=== PATIENT | female | born 1940 | race Caucasian/White ===

== ENCOUNTER 2022-06-26 11:25 | Inpatient (IN) | payer MEDICARE, OTHER ==
[~2022-06-26] VITALS: Ht 162.6 cm; Wt 77.1 kg
[2022-06-26] MEDS ORDERED: METOPROLOL (12:04)
[2022-06-26] MEDS ORDERED: ATORVASTATIN (12:04)
[2022-06-26] MEDS ORDERED: LISINOPRIL (12:04)
[2022-06-26] MEDS ORDERED: HYDRALAZINE (12:04)
--- NOTE | 2022-06-26 12:04 | NUR ---
PT UNABLE TO RECALL DOSAGES FOR MEDS.
[2022-06-26 13:04] LABS: HEMATOCRIT 27.5 % (31.2-41.9); MEAN CORPUSCULAR HEMOGLOBIN 16.7 uug (24.7-32.8); MEAN CORPUSCULAR VOLUME 61.4 fL (75.5-95.3); PLATELET COUNT (AUTO) 692 K/uL (179-408)
[2022-06-26 13:27] LABS: ALANINE AMINOTRANSFERASE 17 U/L (14-59); ALKALINE PHOSPHATASE 100 U/L (50-136); ASPARTATE AMINOTRANSFERASE 17 U/L (15-37); BILIRUBIN,DIRECT 0.4 mg/dL (0.0-0.2); BILIRUBIN,TOTAL 0.8 mg/dL (0.2-1.0); CARBON DIOXIDE 30 mmol/L (21-32); CHLORIDE 104 mmol/L (98-107); CREATININE 0.7 mg/dL (0.6-1.3); GLUCOSE 125 mg/dL (74-106); POTASSIUM 4.2 mmol/L (3.5-5.1); TOTAL PROTEIN, SERUM 7.2 g/dL (6.4-8.2); UREA NITROGEN, BLOOD 18 mg/dL (7-18)
[2022-06-26] MEDS ORDERED: FUROSEMIDE 40 MG/4 ML VIAL IV ONE (14:00)
[2022-06-26] MEDS ORDERED: ASPIRIN 81 MG TAB.CHEW PO ONE (14:00)
[2022-06-26] MEDS ORDERED: ACETAMINOPHEN 325 MG TABLET PO PRN (14:15)
[2022-06-26] MEDS ORDERED: hydrALAZINE HCL 20 MG/1 ML VIAL IV PRN (14:15)
[2022-06-26] MEDS ORDERED: LABETALOL HCL 100 MG/20 ML VIAL IV PRN (14:15)
[2022-06-26] MEDS ORDERED: ALBUTEROL SULFATE 8 GM HFA.AER.AD IH PRN (14:15)
[2022-06-26] MEDS ORDERED: MORPHINE SULFATE 2 MG/1 ML DISP.SYRIN IVP PRN (14:15)
[2022-06-26] MEDS ORDERED: ONDANSETRON 4 MG/2 ML VIAL IV PRN (14:15)
[2022-06-26] MEDS ORDERED: FUROSEMIDE 40 MG/4 ML VIAL ONE (14:16)
[2022-06-26] MEDS ORDERED: ASPIRIN 81 MG TAB.CHEW ONE (14:16)
[2022-06-26] MEDS ORDERED: SWABABLE VALVE TRANSFER SET EA MC ONE (14:28)
[2022-06-26] MEDS ORDERED: IV NORMAL SALINE 250 ML IV ONE (14:28)
[2022-06-26] MEDS ORDERED: IOHEXOL 350 100 ML INFUS..BTL ONE (14:28)
[2022-06-26 15:01] LABS: LYMPHOCYTES % (MANUAL) 3 % (20-40); MONOCYTES % (MANUAL) 4 % (2-10); NEUTROPHILS % (MANUAL) 93 % (42-75)
[2022-06-26] MEDS ORDERED: levoFLOXacin 750 MG/D5W 150 ML PIGGYBACK IV ONE (15:30)
--- NOTE | 2022-06-26 15:30 | NUR ---
Unable to give Levaquin ABX IV to Pt since no IV available now.
--- NOTE | 2022-06-26 15:42 | NUR ---
Pt HL on LT Fa removed, small infiltate noted, ice applied.
--- NOTE | 2022-06-26 15:46 | NUR ---
Pt left Er for Ct scan.
--- NOTE | 2022-06-26 16:02 | NUR ---
Pt back from Ct, resting in bed.
[2022-06-26 16:36] LABS: *BILIRUBIN,URIN NEGATIVE (NEGATIVE); *BLOOD, URINE 2+ (NEGATIVE); *CLARITY,URINE CLEAR (CLEAR); *KETONES,URINE NEGATIVE (NEGATIVE); *UROBILINOGEN,URINE 0.2 E.U./dl (NORMAL); LEUKOCYTE ESTERASE ,URINE TRACE (NEGATIVE); NITRITE, URINE NEGATIVE (NEGATIVE); PH,URINE 6.5 (5.0-8.0); UGLUCOSE NEGATIVE (NEGATIVE)
[2022-06-26 16:47] LABS: BACTERIA,URINE MODERATE /HPF (NONE SEEN); SQUAMOUS EPITHELIAL CELL,UR FEW /HPF (NONE SEEN)
[2022-06-26 16:53] LABS: *COLOR,URINE LIGHT YELLOW (YELLOW)
--- NOTE | 2022-06-26 17:02 | NUR ---
ALINE Midline placed by midline RN.
--- NOTE | 2022-06-26 17:22 | NUR ---
Pt transfered to room 307, TELE via [facility].
[2022-06-26] MEDS ORDERED: ALBUTEROL SULFATE 2.5 MG/3 ML NEBU NEB PRN (17:30)
[2022-06-26 17:53] VITALS: BP 157/74
--- NOTE | 2022-06-26 18:09 | NUR ---
Pt. admitted from ER. Alert and oriented x3. Admit diagnosis is CHF new onset. Pt. has F/C and yellow color urine noted in the bag. Compliance with the care given. Body check done and picture included in pt. chart. Able to ambulate with assist. Call light within reach. No. c/o pain. Will keep monitoring the patient.
[2022-06-26] MEDS: DOCUSATE SODIUM 100 MG CAPSULE PO SCH (18:26)
[2022-06-26 20:00] VITALS: BP 165/85
[2022-06-26] MEDS: FUROSEMIDE 40 MG/4 ML VIAL IV SCH (20:28)
[2022-06-26] MEDS ORDERED: HEPARIN SODIUM,PORCINE 5,000 UNITS/ML VIAL SQ SCH (21:00)
--- NOTE | 2022-06-26 21:24 | NUR ---
Patient in bed awake alert and oriented x3, not in resp distress, denies chest pain. HR up to 130 x 1 hr BP-142/70, reported to Dr. Pantoja.
--- NOTE | 2022-06-26 22:02 | NUR ---
Seen by Dr. Esquivel with new meds and labs orders noted and carried out.
[2022-06-26 23:09] LABS: IRON, SERUM 15 ug/dL (50-175)
[2022-06-26] MEDS: ATORVASTATIN 40 MG TABLET PO SCH (23:10)
[2022-06-26] MEDS: NITROFURANTOIN/NITROFURAN MAC 100 MG CAPSULE PO SCH (23:10)
[2022-06-26 23:13] LABS: FERRITIN 36 ng/mL (8-252)
[2022-06-27] VITALS (10 sets, daily range): BP systolic 117–156; BP diastolic 57–90
[2022-06-27 06:16] LABS: HEMATOCRIT 25.9 % (31.2-41.9); MEAN CORPUSCULAR VOLUME 61.5 fL (75.5-95.3); PLATELET COUNT (AUTO) 589 K/uL (179-408)
--- NOTE | 2022-06-27 06:32 | NUR ---
Critical lab result Hgb 7.2 and troponin 114 reported to Chelsy Flores CONFERENCE RESERVATIONIST with order to transfuse 1 PRBC and lasix 20 mg IV x1 when the blood is transfused. Noted and endorsed to morning shift. Patient is stable, no signs of active bleeding.
[2022-06-27 06:36] LABS: BILIRUBIN,TOTAL 0.8 mg/dL (0.2-1.0); CREATININE 0.7 mg/dL (0.6-1.3); PHOSPHOROUS 3.7 mg/dL (2.5-4.9); POTASSIUM 3.3 mmol/L (3.5-5.1); TOTAL PROTEIN, SERUM 6.3 g/dL (6.4-8.2)
[2022-06-27 06:52] LABS: EOSINOPHILS % (MANUAL) 1 % (0-8); LYMPHOCYTES % (MANUAL) 6 % (20-40); MONOCYTES % (MANUAL) 5 % (2-10); NEUTROPHILS % (MANUAL) 88 % (42-75)
[2022-06-27] MEDS ORDERED: FUROSEMIDE 20 MG/2 ML VIAL IV PRN (07:15)
[2022-06-27] MEDS: FLUTICASONE/VILANTEROL 1 EACH BLST.W.DEV INH SCH (08:58)
[2022-06-27] MEDS: DOCUSATE SODIUM 100 MG CAPSULE PO SCH ×3 (08:59→22:16)
[2022-06-27] MEDS: NITROFURANTOIN/NITROFURAN MAC 100 MG CAPSULE PO SCH ×2 (08:59→22:16)
[2022-06-27] MEDS: ASPIRIN EC 81 MG TABLET.DR PO SCH (08:59)
[2022-06-27] MEDS: FUROSEMIDE 40 MG/4 ML VIAL IV SCH ×2 (09:00→22:15)
[2022-06-27] MEDS ORDERED: ALBUMIN HUMAN 25% 100 ML IV ONE (09:30)
[2022-06-27] MEDS ORDERED: SOD FERRIC GLUC COMPLX/SUCROSE 125 MG in IV NORMAL SALINE 100 ML IV SCH (10:30)
[2022-06-27] MEDS ORDERED: POTASSIUM CHLORIDE 20 MEQ TAB.PRT.SR PO ONE (10:30)
--- NOTE | 2022-06-27 10:46 | NUR ---
Lasix was not given because blood was not administered due to missing consent. Now that we have consent, we are waiting for the blood form the lab
[2022-06-27 11:20] LABS: HEMATOCRIT 27.1 % (31.2-41.9)
[2022-06-27] MEDS ORDERED: SOD FERRIC GLUC COMPLX/SUCROSE 125 MG in IV NORMAL SALINE 100 ML IV ONE (11:30)
--- NOTE | 2022-06-27 12:22 | NUR ---
WOUND CARE CONSULT: PT PRESENTS WITH VERY RED RASH WITH ODOR TO ABDOMINAL/GROIN FOLDS AND PERINEUM, PRESENT ON ADMISSION. RECOMMENDATIONS MADE FOR SKIN CARE AND PROTECTION. DISCUSSED WITH NURSING STAFF. IN AGREEMENT WITH PLAN OF CARE. Addendum: 06/27/22 at 1224 by DAYA COLMENARES RN Amended: Links added.
[2022-06-27] MEDS ORDERED: REMEDY ESSENTIAL ZINC PASTE 113 GM TOP PRN (12:30)
[2022-06-27] MEDS: REMEDY ESSENTIAL ZINC PASTE 113 GM TOP SCH (21:00)
[2022-06-27] MEDS: CLOTRIMAZOLE/BETAMET DIPROP CREAM 15 GM TUBE TOP SCH (21:00)
[2022-06-27] MEDS: ATORVASTATIN 40 MG TABLET PO SCH (22:16)
[2022-06-28] VITALS (7 sets, daily range): BP systolic 135–148; BP diastolic 73–97
[2022-06-28 02:33] LABS: HEMATOCRIT 28.5 % (31.2-41.9)
[2022-06-28 06:54] LABS: HEMATOCRIT 27.3 % (31.2-41.9); MEAN CORPUSCULAR HEMOGLOBIN 18.9 uug (24.7-32.8); MEAN CORPUSCULAR VOLUME 63.4 fL (75.5-95.3); PLATELET COUNT (AUTO) 503 K/uL (179-408)
[2022-06-28 07:26] LABS: CARBON DIOXIDE 34 mmol/L (21-32); CHLORIDE 104 mmol/L (98-107); CREATININE 0.6 mg/dL (0.6-1.3); GLUCOSE 100 mg/dL (74-106); MAGNESIUM 1.5 mg/dL (1.8-2.4); PHOSPHOROUS 2.9 mg/dL (2.5-4.9); POTASSIUM 3.4 mmol/L (3.5-5.1); UREA NITROGEN, BLOOD 13 mg/dL (7-18)
--- NOTE | 2022-06-28 08:01 | NUR ---
1934 Patient received from ongoing nurse at patient bedside. Patient is AAOX3 with some episode of confusion. She is very nice to our staff. Patient denies pain, discomfort; SOB, chill, rash any adverse effect after and during blood transfusion. All of her schedule meds have been administered. No PRN administered. Patient has a Ferrer ; but used the bathroom for BM. She slept for most of the shift with any interruption. We are still waiting for her D/C order. She is now resting in her room. Will continue to monitor patient for safety.
[2022-06-28] MEDS: ASPIRIN EC 81 MG TABLET.DR PO SCH (09:58)
[2022-06-28] MEDS: NITROFURANTOIN/NITROFURAN MAC 100 MG CAPSULE PO SCH ×2 (09:58→21:03)
[2022-06-28] MEDS: FUROSEMIDE 40 MG/4 ML VIAL IV SCH ×2 (09:58→21:03)
[2022-06-28] MEDS: FLUTICASONE/VILANTEROL 1 EACH BLST.W.DEV INH SCH ×2 (09:59→21:12)
[2022-06-28] MEDS: REMEDY ESSENTIAL ZINC PASTE 113 GM TOP SCH ×2 (09:59→21:14)
[2022-06-28] MEDS: CLOTRIMAZOLE/BETAMET DIPROP CREAM 15 GM TUBE TOP SCH ×2 (09:59→21:12)
[2022-06-28] MEDS ORDERED: POTASSIUM CHLORIDE 20 MEQ TAB.PRT.SR PO ONE (11:00)
[2022-06-28] MEDS ORDERED: ATOR20TA PO (11:17)
[2022-06-28] MEDS ORDERED: METO100T14 PO (11:17)
[2022-06-28] MEDS ORDERED: LISI40TA13 PO (11:17)
[2022-06-28] MEDS ORDERED: HYDR-4077 PO (11:17)
[2022-06-28 11:25] LABS: HEMATOCRIT 29.2 % (31.2-41.9)
[2022-06-28] MEDS: MAGNESIUM SULFATE/D5W 100 ML IV SCH ×2 (11:55→13:23)
[2022-06-28] MEDS: SOD FERRIC GLUC COMPLX/SUCROSE 125 MG in IV NORMAL SALINE 100 ML IV SCH (13:52)
[2022-06-28] MEDS: DOCUSATE SODIUM 100 MG CAPSULE PO SCH (17:05)
[2022-06-28 17:53] LABS: BAND % (MANUAL) 0 % (0-10); BASOPHILS % (MANUAL) 0 % (0-2); EOSINOPHILS % (MANUAL) 1 % (0-8); LYMPHOCYTES % (MANUAL) 9 % (20-40); MONOCYTES % (MANUAL) 10 % (2-10); NEUTROPHILS % (MANUAL) 80 % (42-75)
[2022-06-28 19:05] LABS: HEMATOCRIT 28.5 % (31.2-41.9)
--- NOTE | 2022-06-28 19:30 | NUR ---
Received patient alert oriented, no sob no chest pain, tele monitor sinus rhythm, no complain of pain, guallpa cath draining with large amount of urine as expected, on Lasix 40mg, Patient appears weak but able to hold meaningful conversation, tx continue on skin condition rashes on abdominal folds, swelling of lower extremities, kept comfortable.
[2022-06-28] MEDS: ATORVASTATIN 40 MG TABLET PO SCH (21:03)
[2022-06-29 00:04] VITALS: BP 99/69
[2022-06-29 04:20] VITALS: BP 128/75
--- NOTE | 2022-06-29 04:56 | NUR ---
Patient awake alert, no sob no chest pain, v/s stable, tele monitor sinus rhythm, guallpa cath patent, draining with moderate amount of urine as expected, no complain of pain, kept clean dry and comfortable, cont to monitor.
[2022-06-29] MEDS ORDERED: DOCUSATE SODIUM 100 MG CAPSULE PO PRN (05:30)
[2022-06-29] MEDS ORDERED: MAGNESIUM HYDROXIDE 30 ML LIQUID UDC PO PRN (05:30)
[2022-06-29 06:05] LABS: CARBON DIOXIDE 37 mmol/L (21-32); CHLORIDE 102 mmol/L (98-107); CREATININE 0.5 mg/dL (0.6-1.3); GLUCOSE 113 mg/dL (74-106); MAGNESIUM 1.7 mg/dL (1.8-2.4); POTASSIUM 2.9 mmol/L (3.5-5.1); UREA NITROGEN, BLOOD 11 mg/dL (7-18)
[2022-06-29] MEDS: FUROSEMIDE 40 MG/4 ML VIAL IV SCH ×2 (09:26→21:49)
[2022-06-29] MEDS: DOCUSATE SODIUM 100 MG CAPSULE PO SCH ×2 (09:26→17:10)
[2022-06-29] MEDS: NITROFURANTOIN/NITROFURAN MAC 100 MG CAPSULE PO SCH ×2 (09:26→21:48)
[2022-06-29] MEDS: REMEDY ESSENTIAL ZINC PASTE 113 GM TOP SCH ×2 (09:27→21:50)
[2022-06-29] MEDS: CLOTRIMAZOLE/BETAMET DIPROP CREAM 15 GM TUBE TOP SCH ×2 (09:27→21:49)
[2022-06-29] MEDS: ASPIRIN EC 81 MG TABLET.DR PO SCH (09:29)
[2022-06-29] MEDS: POTASSIUM CHLORIDE 20 MEQ TAB.PRT.SR PO SCH ×2 (11:13→17:10)
[2022-06-29] MEDS: METOPROLOL TARTRATE 50 MG TABLET PO SCH ×2 (11:33→21:48)
[2022-06-29] MEDS: MAGNESIUM SULFATE/D5W 100 ML IV SCH ×2 (11:37→12:42)
[2022-06-29 11:56] VITALS: BP 125/81
[2022-06-29] MEDS: SOD FERRIC GLUC COMPLX/SUCROSE 125 MG in IV NORMAL SALINE 100 ML IV SCH (14:00)
[2022-06-29 14:30] VITALS: BP 149/83
--- NOTE | 2022-06-29 14:50 | NUR ---
Discharge was given and completed all documents signed and patient stated that her son will be picking her up [id number] Addendum: 06/29/22 at 1455 by [facility] [id number] RN Discharge was given and completed all documents signed and patient stated that her son will be picking her up at around 1400 pm at time of note 1453 pm, son has not arrive as yet to transport patient home, patient wait quietly with no c/o or discomfort noted at this time.
[2022-06-29 20:16] VITALS: BP 128/71
[2022-06-29] MEDS ORDERED: METOPROLOL TARTRATE 50 MG TABLET PO SCH (21:00)
[2022-06-29] MEDS ORDERED: Medication Not On Formulary EA (Metoprolol Tartrate (Lopressor) 100 MG) PO SCH (21:00)
[2022-06-29] MEDS ORDERED: ATORVASTATIN 20 MG TABLET PO SCH (21:00)
[2022-06-29] MEDS: ATORVASTATIN 40 MG TABLET PO SCH (21:48)
[2022-06-29] MEDS: hydrALAZINE HCL 50 MG TABLET PO SCH (21:49)
[2022-06-30 00:30] VITALS: BP 117/67
[2022-06-30 04:08] VITALS: BP_SYST 121; BP_DIAS 41; BP_DIAS 74
[2022-06-30 06:43] LABS: HEMATOCRIT 27.4 % (31.2-41.9); MEAN CORPUSCULAR HEMOGLOBIN 18.6 uug (24.7-32.8); MEAN CORPUSCULAR VOLUME 65.4 fL (75.5-95.3); PLATELET COUNT (AUTO) 429 K/uL (179-408)
[2022-06-30 07:05] LABS: CREATININE 0.6 mg/dL (0.6-1.3); PHOSPHOROUS 2.6 mg/dL (2.5-4.9); POTASSIUM 3.9 mmol/L (3.5-5.1)
[2022-06-30] MEDS ORDERED: Medication Not On Formulary EA (Lisinopril 40 MG) PO SCH (09:00)
[2022-06-30] MEDS: NITROFURANTOIN/NITROFURAN MAC 100 MG CAPSULE PO SCH ×2 (09:33→21:27)
[2022-06-30] MEDS: hydrALAZINE HCL 50 MG TABLET PO SCH ×2 (09:34→21:28)
[2022-06-30] MEDS: POTASSIUM CHLORIDE 20 MEQ TAB.PRT.SR PO SCH ×2 (09:34→17:28)
[2022-06-30] MEDS: METOPROLOL TARTRATE 50 MG TABLET PO SCH ×2 (09:35→21:29)
[2022-06-30] MEDS: LISINOPRIL 20 MG TABLET PO SCH (09:35)
[2022-06-30] MEDS: DOCUSATE SODIUM 100 MG CAPSULE PO SCH ×2 (09:36→17:28)
[2022-06-30] MEDS: ASPIRIN EC 81 MG TABLET.DR PO SCH (09:36)
[2022-06-30] MEDS: COLCHICINE 0.6 MG TABLET PO SCH ×2 (09:41→17:28)
[2022-06-30] MEDS: REMEDY ESSENTIAL ZINC PASTE 113 GM TOP SCH ×2 (09:42→21:30)
[2022-06-30] MEDS: CLOTRIMAZOLE/BETAMET DIPROP CREAM 15 GM TUBE TOP SCH ×2 (09:43→21:29)
[2022-06-30] MEDS: FLUTICASONE/VILANTEROL 1 EACH BLST.W.DEV INH SCH (09:43)
[2022-06-30 10:21] LABS: LYMPHOCYTES % (MANUAL) 8 % (20-40); MONOCYTES % (MANUAL) 9 % (2-10); NEUTROPHILS % (MANUAL) 83 % (42-75)
[2022-06-30 11:54] VITALS: BP 115/69
[2022-06-30 16:28] VITALS: BP 137/74
[2022-06-30 20:00] VITALS: BP 138/78
[2022-06-30] MEDS: ATORVASTATIN 40 MG TABLET PO SCH (21:28)
[2022-07-01 04:00] VITALS: BP 146/76
--- NOTE | 2022-07-01 05:27 | NUR ---
Patient awake,alert,and oriented x3. No acute distress noted. Denies pain. Mild shortness of breath noted. Head of bed elevated 35%. O2 on at 3l per n c. Ferrer intact with clear frank urine noted. Up to bathroom with walker and assistance. Patient had small bm. Will continue to monitor.
[2022-07-01 06:54] LABS: HEMATOCRIT 28.5 % (31.2-41.9); MEAN CORPUSCULAR HEMOGLOBIN 18.9 uug (24.7-32.8); MEAN CORPUSCULAR VOLUME 66.6 fL (75.5-95.3); PLATELET COUNT (AUTO) 424 K/uL (179-408)
[2022-07-01 07:29] LABS: CREATININE 0.6 mg/dL (0.6-1.3); MAGNESIUM 1.9 mg/dL (1.8-2.4); PHOSPHOROUS 2.8 mg/dL (2.5-4.9); POTASSIUM 4.4 mmol/L (3.5-5.1)
[2022-07-01 08:00] VITALS: BP 134/72
[2022-07-01] MEDS: CLOTRIMAZOLE/BETAMET DIPROP CREAM 15 GM TUBE TOP SCH (09:00)
[2022-07-01] MEDS: REMEDY ESSENTIAL ZINC PASTE 113 GM TOP SCH (09:00)
[2022-07-01] MEDS: FLUTICASONE/VILANTEROL 1 EACH BLST.W.DEV INH SCH (09:00)
[2022-07-01] MEDS: METOPROLOL TARTRATE 50 MG TABLET PO SCH (10:35)
[2022-07-01] MEDS: DOCUSATE SODIUM 100 MG CAPSULE PO SCH (10:36)
[2022-07-01] MEDS: POTASSIUM CHLORIDE 20 MEQ TAB.PRT.SR PO SCH (10:36)
[2022-07-01] MEDS: COLCHICINE 0.6 MG TABLET PO SCH (10:36)
[2022-07-01] MEDS: NITROFURANTOIN/NITROFURAN MAC 100 MG CAPSULE PO SCH (10:36)
[2022-07-01] MEDS: hydrALAZINE HCL 50 MG TABLET PO SCH (10:37)
[2022-07-01] MEDS: ASPIRIN EC 81 MG TABLET.DR PO SCH (10:37)
[2022-07-01] MEDS: LISINOPRIL 20 MG TABLET PO SCH (10:37)
[2022-07-01 12:00] VITALS: BP 129/46
[2022-07-01] MEDS ORDERED: ENSURE ENLIVE (VAN) 240 ML LIQUID PO SCH (17:00)
--- NOTE | 2022-07-01 17:45 | NUR ---
REPORT GIVEN TO NORI BRAVO AT [facility]..PT LEFT VIA AMBULANCE IN STABLE CONDITION WITH EMS TECHS..MESSAGE LEFT FOR SONELIZABETH THAT PT IS BEING DISCHARGED TO [facility]..
== END 2022-07-01 17:35 | DRG 280 ==
LOC: ER 11:25 → TELE3 16:31
PROVIDERS: ADMIT Internal Medicine
PROC: 05H633Z Insertion of Infusion Device into Left Subclavian Vein, Percutaneous Approach (ICD-10-PCS; 2022-06-26)
PROC: B547ZZA Ultrasonography of Left Subclavian Vein, Guidance (ICD-10-PCS; 2022-06-26)
PROC: 30233N1 Transfusion of Nonautologous Red Blood Cells into Peripheral Vein, Percutaneous Approach (ICD-10-PCS; principal; 2022-06-27)
DX: I11.0 Hypertensive heart disease with heart failure (principal); I50.31 Acute diastolic (congestive) heart failure; I21.A1 Myocardial infarction type 2; I31.39 Other pericardial effusion (noninflammatory); N39.0 Urinary tract infection, site not specified; J90 Pleural effusion, not elsewhere classified; J98.11 Atelectasis; I31.9 Disease of pericardium, unspecified; D50.9 Iron deficiency anemia, unspecified; D75.839 Thrombocytosis, unspecified; E78.5 Hyperlipidemia, unspecified; R09.02 Hypoxemia; Z88.0 Allergy status to penicillin; D72.829 Elevated white blood cell count, unspecified; I69.398 Other sequelae of cerebral infarction; F03.90 Unspecified dementia, unspecified severity, without behavioral disturbance, psychotic disturbance, mood disturbance, and anxiety; B96.20 Unspecified Escherichia coli [E. coli] as the cause of diseases classified elsewhere
CPT/HCPCS: 36415; 70030-TC; 71045; 71250; 83550; 83605; 83735; 84100; 84484; 85018; 85025; 85651; 86140; 86850; 86900; 86901; 86920; 87040; 93005; 93307; A4663; G0378; J1940; J2916; J3475; P9016; P9047; Q9967